=== PATIENT | female | born 1965 | race Two or more races ===

== ENCOUNTER 2025-02-11 16:52 | Inpatient (IN) | payer MEDICARE, MEDICAID, SELFPAY ==
--- OUTSIDE RECORDS SUMMARY | 2025-02-08 01:33 | XMS_ITS | Encounter Summary ---
Author Organization [facility] Address [address] [place] [address] Care Team Providers Care Caregivers Non Medical Name Role Phone Bill Syed MD Primary Care Provider [phone] Reason for Visit * Reason Comments Suicidal Encounter Details Date Type Department Care Team (Late st Contact Info) Description 02/08/2025 1:33 AM EDT - 02/11/2025 4:30 PM EDT Emergency [facility] Emergency [address] [place] [id number] Lynne Smith MD [address] [place] [address] Genoveva Winston MD [address] [place] [address] Jim Shah MD [address] [place], [place] [id number] Александр Arias MD [address] [place] [address] Kodak Altman MD [address] [place] [address] Saad Anderson MD [address] [address] Depression, unspecified depression type (Primary Dx); Housing insecurity; Auditory hallucinations Discharge Disposition: Psychiatric Hospital Social History Tobacco Use Types Packs/Day Years Used Date Smoking Tobacco: Never Smokeless Tobacco: Never Alcohol Use Standard Drinks/Week Comments Yes 0 (1 standard drink = 0.6 oz pur e alcohol) Housing Instability Answer Date Recorde d Are you worried that in the next 2 months you may not have stable housing? Yes 07/30/2024 Food Access & Nutrition Answer Date Rec orded Do you have access to a vari ety of food including fruits and vegetables? Yes 07/30/2024 Access to Healthcare Answer Date Record ed Within the last 3 months, ho w many times did you visit the emergency department for your medical care? 2 07/30/2024 Health Literacy Answer Date Recorded How often do you need to hav e someone help you when you read instructions, pamphlets, or other written material from your doctor or pharmacy? Never 07/30/2024 Caregiver: How often do you need to have someone help you when you read instructions, pamphlets, or other written material from your doctor or pharmacy? Not on file 07/30/2024 Financial Risk Answer Date Recorded How hard is it for you to pa y for the very basics like food, housing, medical care, and air conditioning / heating? Not very hard 07/30/2024 Transportation Answer Date Recorded Has the lack of transportati on kept you from meetings, work, or from getting things needed for daily living? No Has the lack of transportati on kept you from medical appointments or from getting medications? No 07/30/2024 Social Isolation Answer Date Recorded How often do you feel lonely or isolated from those around you? Sometimes 07/30/2024 Food Risk Answer Date Recorded Within the past 12 months we worried whether our food would run out before we got money to buy more. Never true 07/30/2024 Within the past 12 months th e food we bought just didn't last and we didn't have money to get more. Never true 07/30/2024 Dependent Care Answer Date Recorded Do you need help finding or paying for care for your loved ones. For example, child guidance counselor or elderly care for an older adult? No 07/30/2024 Education Answer Date Recorded Do you think completing more education or training, like finishing a GED, going to college, or learning a trade, would be helpful for you? No 07/30/2024 Employment and Income Answer Date Recor ded During the last four weeks, have you been actively looking for work? No 07/30/2024 Living Situation Answer Date Recorded What is your living situation? 0 07/30/2024 Comments No Sex and Gender Information Value Date Recorded Sex Assigned at Not on file Legal Sex Female 4:52 AM EST Gender Identity Not on file Sexual Orientation Not on file documented as of this encounter Last Filed Vital Signs Vital Sign Reading Time Taken Comments Blood Pressure 125/74 02/11/2025 12:41 PM EDT Pulse 68 02/11/2025 12:41 PM EDT Temperature 36.9 C (98.4 F) 02/11/2025 12:41 PM EDT Respiratory Rate 17 02/11/2025 5:39 AM EDT Oxygen Saturation 99% 02/11/2025 12:41 PM EDT Inhaled Oxygen Concentration - - Weight 59 kg (130 lb) 02/08/2025 1:51 AM EDT Height 157.5 cm (5' 2 ) 02/08/2025 1:51 AM EDT Body Mass Index 23.78 02/08/2025 1:51 AM EDT documented in this encounter Medications at Time of Discharge gabapentin (NEURONTIN) 800 mg tabletIndications: Familial hyperlipidemia,Krystal noemy hypertension Take 1 tablet (800 mg total) by mouth 1 (one) time each day. 90 tablet 1 08/23/2024 levothyroxine (SYNTHROID, LEVOTHROID) 75 mcg tabletIndications: Hypothyroidism, unspecified type Takes 75 mcg Mondays to Saturdays. Takes 2 tabs on Sundays 34 each 1 10/16/2024 melatonin 3 mg tablet Take 1 tablet (3 mg total) by mouth at bedtime as needed. 06/17/2024 traZODone (DESYREL) 50 mg tablet Take 1 tablet (50 mg total) by mouth. 08/23/2022 documented as of this encounter Discharge Disposition Disposition Code Departure Means Destination Comment [facility] (Acute Care Facility) documented in this encounter Progress Notes * Sara Flores LCSW - 02/11/2025 12:56 PM EDT BED FOUND- Patient accepted to [facility], by Dr. Thomas Tate. They requested andETA for 3:30pm. * Lynne Smith MD - 02/11/2025 6:23 AM EDT Gifty Perez This patient's care was signed out to me by the offgoing provider. Please see her/his note for further details regarding initial presentation, history of present illness, physical exam, and medical decision making. At time of signout, the following was pending: ED Course as of 02/11/25 0623 Sat Feb 08, 2025 0350 CBC and differential(!) No clinically significant abnormalities. No significant leukocytosis, anemia, thrombocytopenia. [EK] 0422 Ethanol Level(!): 282 [EK] 0439 Alkaline Phosphatase(!): 129 Otherwise unremarkable CMP [EK] 0518 Urine drug screen negative. Patient is clinically sober at this time, speaks with clear and fluent speech, ambulates without assistance. Given EtOH level at 282 at 0200, I will reevaluate her closer to shift change and ensure she is clear for crisis evaluation. [EK] 0808 Patient clinically sober and medically clear for crisis evaluation [EK] [address] Smith: housing insecurity x 2 yrs, feeling hopeless, passive SI, does not want [place], wants respite, unclear what this is but pt states [facility] has helped before, EtOH 282 but clinically sober, pending crisis evaluation, no medical concerns, has distal radius fx s/p ORIF has splint, could leave [RG] 1030 Spoke with Casey from crisis, they will admit for worsening depression and anxiety, also havingAH, she is bed search status, no psych meds [RG] 1242 Ordered home melatonin [RG] 1742 Patient signed out to Dr. Jones pending placement [RG] 2135 Continues to await psych placement [EK] Sun Feb 09, [address] Smith: bed search, no overnight events [RG] 0821 Per RN crisis requesting psych consult, this was placed, insurance healthcare consultant contacted [RG] 1807 Patient received in signout from Dr. Winston pending bed search. Psychiatry had been consulted by daytime team for medical management of depression. Anticipate signout to nighttime physician colleague. [KD] 1802 Pt signed out to Dr. Arias pending bed search [RG] MonFeb 10, 2025 1017 No acute needs during my shift. Patient's care was handed over to the oncoming provider. [EK] [address] Smith: no overnight events, pending search for SI, has remeron on [RG] 1847 Patient signed out to Dr. Altman pending bed search [RG] MonFeb 11, 2025 0148 Patient signed out to me earlier in the shift pending placement for psychiatric evaluation forsuicidal ideation. No acute events over the period of my shift. Patient signed out to . [CL] 0438 No acute needs during my shift. Patient's care was handed over to the oncoming provider. [EK] ED Course User Index [CL] Kodak Altman MD [EK] Lynne Smith MD [KD] Александр Arias MD [RG] Genoveva Winston MD Clinical Impressions as of 02/11/25 0623 Housing insecurity Auditory hallucinations Depression, unspecified depression type No orders to display Labs Reviewed COMPREHENSIVE METABOLIC PANEL - Abnormal Result Value Sodium 142 Potassium 3.9 Chloride 104 CO2 32 Anion Gap 6 Glucose 106 (*) BUN 10 Creatinine 0.76 eGFR 91 BUN/Creatinine Ratio 13.2 Calcium 8.9 AST (SGOT) 16 ALT (SGPT) 15 Alkaline Phosphatase 129 (*) Total Protein 7.3 Albumin 3.6 Total Bilirubin 0.2 ETHANOL - Abnormal Ethanol Level 282 (*) ACETAMINOPHEN LEVEL - Abnormal Acetaminophen Level <2.0 (*) SALICYLATE LEVEL - Abnormal Salicylate Level <1.7 (*) CBC WITH AUTO DIFFERENTIAL - Abnormal WBC 6.0 RBC 4.20 Hemoglobin 14.2 Hematocrit 44.2 MCV 106.5 (*) MCH 34.2 (*) MCHC 32.1 RDW 20.0 (*) Platelets 240 MPV 9.5 NRBC 0.0 NRBC Absolute 0.00 Neutrophils Relative 27.1 Lymphocytes Relative 67.4 Monocytes Relative 3.5 Eosinophils Relative 1.0 Basophils Relative 0.7 Immature Granulocytes Relative 0.3 Neutrophils Absolute 1.63 Lymphocytes Absolute 4.06 Monocytes Absolute 0.21 Eosinophils Absolute 0.06 Basophils Absolute 0.04 Immature Granulocytes Absolute 0.02 DRUG ABUSE SCREEN 8A PANEL, URINE - Normal Amphetamine Screen, Ur Negative Barbiturate Screen, Ur Negative Benzodiazepine Screen, Ur Negative Cocaine Screen, Ur Negative Opiate Screen, Ur Negative Cannabinoid (THC) Screen, Ur Negative Oxycodone Screen, Ur Negative Fentanyl, Ur Negative Narrative: Assay cutoffs: Amphetamines 1000 ng/mL Barbiturates 200 ng/mL Benzodiazepines 200 ng/mL Cocaine 300 ng/mL Fentanyl 1 ng/mL Opiates 300 ng/mL Oxycodone 100 ng/mL THC 50 ng/mL Semi-quantitative assay for screening purposes only. Unconfirmed screening result should not be used for non-medical purposes. *ALTERNATE METHOD CONFIRMATION DONE UPON REQUEST ONLY* BUPRENORPHINE SCREEN, URINE - Normal Buprenorphine Screen Urine Negative Narrative: Assay cutoff 5 ng/mL Semi-quantitative assay for screening purposes only. Unconfirmed screening result should not be used for non-medical purposes. *ALTERNATE METHOD CONFIRMATION DONE UPON REQUEST ONLY* PHENCYCLIDINE, URINE - Normal PCP Scrn, Ur Negative METHADONE SCREEN, URINE - Normal Methadone Screen, Urine Negative CBC AND DIFFERENTIAL Narrative: The following orders were created for panel order CBC and differential. Procedure Abnormality Status --------- ------ CBC auto differential[[id number]] Abnormal Final result Please view results for these tests on the individual orders. Clinical Impression(s): Final diagnoses: [Z59.819] Housing insecurity [R44.0] Auditory hallucinations [F32.A] Depression, unspecified depression type Send to Specialty Department Previous Medications GABAPENTIN (NEURONTIN) 800 MG TABLET Take 1 tablet (800 mg total) by mouth 1 (one) time each day. LEVOTHYROXINE (SYNTHROID, LEVOTHROID) 75 MCG TABLET Takes 75 mcg Mondays to Saturdays. Takes 2 tabson Sundays MELATONIN 3 MG TABLET Take 1 tablet (3 mg total) by mouth at bedtime as needed. TRAZODONE (DESYREL) 50 MG TABLET Take 1 tablet (50 mg total) by mouth. ED Medication Administration from 02/08/2025 0128 to 02/11/2025 0623 Date/Time Order Dose Route Action Action by 02/08/2025 0530 EDT gabapentin (NEURONTIN) capsule 800 mg 800 mg oral Not Given Tonya Peres 02/08/2025 0408 EDT acetaminophen (TYLENOL) tablet 1,000 mg 1,000 mg oral Given Wall, K 02/08/2025 0408 EDT ketorolac (TORADOL) injection 15 mg 15 mg intramuscular Given Wall, K 02/08/2025 0620 EDT levothyroxine (SYNTHROID, LEVOTHROID) tablet 75 mcg 75 mcg oral Given Wall, K 02/09/2025 0749 EDT levothyroxine (SYNTHROID, LEVOTHROID) tablet 75 mcg 75 mcg oral Given Clarissa, Myra 02/10/2025 0637 EDT levothyroxine (SYNTHROID, LEVOTHROID) tablet 75 mcg 75 mcg oral Given Chace Latham 02/08/2025 205 EDT gabapentin (NEURONTIN) capsule 800 mg 800 mg oral Given Maria D Kathleen 02/09/2025 2154 EDT gabapentin (NEURONTIN) capsule 800 mg 800 mg oral Given Adi, Nadine 02/10/2025 2255 EDT gabapentin (NEURONTIN) capsule 800 mg 800 mg oral Given Jalen Rocha 02/08/2025 2253 EDT melatonin tablet 3 mg 3 mg oral Given Maria D Kathleen 02/10/2025 0015 EDT melatonin tablet 3 mg 3 mg oral Given Adi, D 02/10/2025 2256 EDT melatonin tablet 3 mg 3 mg oral Given Jalen Rocha 02/09/2025 2154 EDT mirtazapine (REMERON) tablet 15 mg 15 mg oral Given Adi, Nadine 02/10/2025 0916 EDT acetaminophen (TYLENOL) tablet 650 mg 650 mg oral Given Dusty Tello 02/10/2025 2256 EDT mirtazapine (REMERON) tablet 7.5 mg 7.5 mg oral Given Jalen Rocha * Kodak Altman MD - 02/11/2025 1:49 AM EDT Gifty Perez ED Course as of 02/11/25 0149 Sat Feb 08, 2025 0350 CBC and differential(!) No clinically significant abnormalities. No significant leukocytosis, anemia, thrombocytopenia. [EK] 0422 Ethanol Level(!): 282 [EK] 0439 Alkaline Phosphatase(!): 129 Otherwise unremarkable CMP [EK] 0518 Urine drug screen negative. Patient is clinically sober at this time, speaks with clear and fluent speech, ambulates without assistance. Given EtOH level at 282 at 0200, I will reevaluate her closer to shift change and ensure she is clear for crisis evaluation. [EK] 0808 Patient clinically sober and medically clear for crisis evaluation [EK] [address] Smith: housing insecurity x 2 yrs, feeling hopeless, passive SI, does not want [place], wants respite, unclear what this is but pt states [facility] has helped before, EtOH 282 but clinically sober, pending crisis evaluation, no medical concerns, has distal radius fx s/p ORIF has splint, could leave [RG] 1030 Spoke with Casey from crisis, they will admit for worsening depression and anxiety, also havingAH, she is bed search status, no psych meds [RG] 1242 Ordered home melatonin [RG] 1742 Patient signed out to Dr. Jones pending placement [RG] 2135 Continues to await psych placement [EK] [place] Feb 09, [address] Smith: bed search, no overnight events [RG] 0821 Per RN crisis requesting psych consult, this was placed, insurance healthcare consultant contacted [RG] 180 Patient received in signout from Dr. Winston pending bed search. Psychiatry had been consulted by daytime team for medical management of depression. Anticipate signout to nighttime physician colleague. [KD] 1802 Pt signed out to Dr. Arias pending bed search [RG] MonFeb 10, 2025 1017 No acute needs during my shift. Patient's care was handed over to the oncoming provider. [EK] [address] Smith: no overnight events, pending search for SI, has remeron on [RG] 1847 Patient signed out to Dr. Altman pending bed search [RG] MonFeb 11, 2025 0148 Patient signed out to me earlier in the shift pending placement for psychiatric evaluation forsuicidal ideation. No acute events over the period of my shift. Patient signed out to . [CL] ED Course User Index [CL] Kodak Altman MD [EK] Lynne Smith MD [KD] Александр Arias MD [RG] Genoveva Winston MD Clinical Impressions as of 02/11/25 0149 Housing insecurity Auditory hallucinations Depression, unspecified depression type * Joanna Rocha RN - 02/10/2025 11:27 PM EDT SEARCH- 1:1 watch due to arianne wrap Joanna Rocha RN 02/10/25 2327 * Genoveva Winston MD - 02/10/2025 6:56 PM EDT Gifty Chris ED Course as of 02/10/25 1857 Sat Feb 08, 2025 0350 CBC and differential(!) No clinically significant abnormalities. No significant leukocytosis, anemia, thrombocytopenia. [EK] 0422 Ethanol Level(!): 282 [EK] 0439 Alkaline Phosphatase(!): 129 Otherwise unremarkable CMP [EK] 0518 Urine drug screen negative. Patient is clinically sober at this time, speaks with clear and fluent speech, ambulates without assistance. Given EtOH level at 282 at 0200, I will reevaluate her closer to shift change and ensure she is clear for crisis evaluation. [EK] 0808 Patient clinically sober and medically clear for crisis evaluation [EK] [address] Smith: housing insecurity x 2 yrs, feeling hopeless, passive SI, does not want [place], wants respite, unclear what this is but pt states [facility] has helped before, EtOH 282 but clinically sober, pending crisis evaluation, no medical concerns, has distal radius fx s/p ORIF has splint, could leave [RG] 1030 Spoke with Casey from crisis, they will admit for worsening depression and anxiety, also havingAH, she is bed search status, no psych meds [RG] 1242 Ordered home melatonin [RG] 1742 Patient signed out to Dr. Jones pending placement [RG] 2135 Continues to await psych placement [EK] Sun Feb 09, [address] Smith: bed search, no overnight events [RG] 0821 Per RN crisis requesting psych consult, this was placed, insurance healthcare consultant contacted [RG] 1801 Patient received in signout from Dr. Winston pending bed search. Psychiatry had been consulted by daytime team for medical management of depression. Anticipate signout to nighttime physician colleague. [KD] 180 Pt signed out to Dr. Arias pending bed search [RG] MonFeb 10, 2025 1017 No acute needs during my shift. Patient's care was handed over to the oncoming provider. [EK] [address] Smith: no overnight events, pending search for SI, has remeron on [RG] 184 Patient signed out to Dr. Altman pending bed search [RG] ED Course User Index [EK] Lynne Smith MD [KD] Александр Arias MD [RG] Genoveva Winston MD Clinical Impressions as of 02/10/251856 Housing insecurity Auditory hallucinations Depression, unspecified depression type * SHANNAN Groves - 02/10/2025 5:32 PM EDT Social work aware patient assessed by [facility]/02-10-25 and remains a voluntary in patient psychiatric bed search. * Jessa Seay NP - 02/10/2025 11:48 AM EDT Psychiatry Progress note Patient seen by me, nursing report reviewed with the interdisciplinary team, medications and chart history reviewed. Subjective: (reported issues and events over the last 24 hours) The medicine did make me sleepy but it made my body jumpy Active Problems: No Active Problems: There are no active problems currently on the Problem List. Please update the Problem List and refresh. Objective: Seclusion/Restraint in last 24 hours: No Blood pressure (!) 130/92, pulse 62, temperature 37.1 ??C (98.7 ??F), temperature source Oral, resp. rate 18, height 1.575 m (62 ), weight 59 kg (130 lb), SpO2 98%. Appearance/Grooming: grooming moderately kept and well developed, well nourished Musculoskeletal: reports lower extremity numbness. Tingling Orientation: Appropriate to age, Person, Place, and Time Mood: depressed and sad Affect: flat Memory: Recent: good Remote: good Attention Span: fair Concentration: fair Language Usage: Appropriate to age Speech: Coherent, Regular rate, rhythm, volume and articulation, and Soft Fund. Of Knowledge: Fair Thought Processes: Abstract reasoning appropriate to age and Coherent Thought Associations: Logical Thought Abnormalities or Psychosis: Not present Judgement: Good Insight: fair Sleep: normal Appetite: better Energy: no change Lab Results: Results for orders placed or performed during the hospital encounter of 02/08/25 Comprehensive metabolic panel Collection Time: 02/08/25 2:07 AM Result Value Ref Range Sodium 142 133 - 145 mmol/L Potassium 3.9 3.5 - 5.5 mmol/L Chloride 104 96 - 110 mmol/L CO2 32 21 - 32 mmol/L Anion Gap 6 3 - 11 Glucose 106 (H) 70 - 100 mg/dL BUN 10 5 - 25 mg/dL Creatinine 0.76 0.50 - 1.10 mg/dL eGFR 91 >=60 mL/min/1.73m2 BUN/Creatinine Ratio 13.2 Calcium 8.9 8.5 - 10.5 mg/dL AST (SGOT) 16 10 - 42 unit/L ALT (SGPT) 15 10 - 60 unit/L Alkaline Phosphatase 129 (H) 42 - 121 unit/L Total Protein 7.3 6.0 - 8.0 g/dL Albumin 3.6 3.2 - 5.0 g/dL Total Bilirubin 0.2 0.0 - 1.4 mg/dL Ethanol Collection Time: 02/08/25 2:07 AM Result Value Ref Range Ethanol Level 282 (H) 0 - 10 mg/dL Acetaminophen level Collection Time: 02/08/25 2:07 AM Result Value Ref Range Acetaminophen Level <2.0 (L) 10.0 - 30.0 mcg/mL Salicylate level Collection Time: 02/08/25 2:07 AM Result Value Ref Range Salicylate Level <1.7 (L) 2.0 - 29.0 mg/dL CBC auto differential Collection Time: 02/08/25 2:07 AM Result Value Ref Range WBC 6.0 4.8 - 10.8 K/mcL RBC 4.20 3.80 - 4.80 M/mcL Hemoglobin 14.2 11.5 - 16.0 g/dL Hematocrit 44.2 35.0 - 47.0 % MCV 106.5 (H) 79.0 - 98.0 FL MCH 34.2 (H) 27.0 - 32.0 pcg MCHC 32.1 32.0 - 37.0 g/dL RDW 20.0 (H) 11.0 - 15.0 % Platelets 240 130 - 400 K/mcL MPV 9.5 7.0 - 11.0 FL NRBC 0.0 <1.0 % NRBC Absolute 0.00 <0.10 K/mcL Neutrophils Relative 27.1 % Lymphocytes Relative 67.4 % Monocytes Relative 3.5 % Eosinophils Relative 1.0 % Basophils Relative 0.7 % Immature Granulocytes Relative 0.3 % Neutrophils Absolute 1.63 1.50 - 7.00 K/mcL Lymphocytes Absolute 4.06 1.00 - 5.00 K/mcL Monocytes Absolute 0.21 0.20 - 1.00 K/mcL Eosinophils Absolute 0.06 0.00 - 0.50 K/mcL Basophils Absolute 0.04 0.00 - 0.20 K/mcL Immature Granulocytes Absolute 0.02 0.00 - 0.03 K/mcL Drug abuse screen 8a panel, urine Collection Time: 02/08/25 2:20 AM Result Value Ref Range Amphetamine Screen, Ur Negative Negative Barbiturate Screen, Ur Negative Negative Benzodiazepine Screen, Ur Negative Negative Cocaine Screen, Ur Negative Negative Opiate Screen, Ur Negative Negative Cannabinoid (THC) Screen, Ur Negative Negative Oxycodone Screen, Ur Negative Negative Fentanyl, Ur Negative Negative Buprenorphine screen, urine Collection Time: 02/08/25 2:20 AM Result Value Ref Range Buprenorphine Screen Urine Negative Negative Phencyclidine, urine Collection Time: 02/08/25 2:20 AM Result Value Ref Range PCP Scrn, Ur Negative Negative Methadone, urine Collection Time: 02/08/25 2:20 AM Result Value Ref Range Methadone Screen, Urine Negative Negative Medications: Current Facility-Administered Medications Medication Dose Route Frequency Provider Last Rate Last Admin gabapentin (NEURONTIN) capsule 800 mg 800 mg oral Nightly Lynne Smith MD 800 mg at 02/09/25 5914 levothyroxine (SYNTHROID, LEVOTHROID) tablet 75 mcg 75 mcg oral q AM AC Lynne Smith MD 75 mcg at 02/10/25 0637 melatonin tablet 3 mg 3 mg oral Nightly PRN Genoveva Winston MD 3 mg at 02/10/25 0015 mirtazapine (REMERON) tablet 15 mg 15 mg oral Nightly Jessa Seay NP 15 mg at 02/09/25 3837 Current Outpatient Medications Medication Sig Dispense Refill gabapentin (NEURONTIN) 800 mg tablet Take 1 tablet (800 mg total) by mouth 1 (one) time each day. 90 tablet 1 levothyroxine (SYNTHROID, LEVOTHROID) 75 mcg tablet Takes 75 mcg Mondays to Saturdays. Takes 2 tabson Sundays 34 each 1 melatonin 3 mg tablet Take 1 tablet (3 mg total) by mouth at bedtime as needed. (Patient not taking: Reported on 02/08/2025) traZODone (DESYREL) 50 mg tablet Take 1 tablet (50 mg total) by mouth. (Patient not taking: Reported on 02/08/2025) Diagnosis/Assessment/Plan: Depression, recurrent Anxiety Housing insecurity Alcohol use Ms Perez continues to deny suicidal ideation, reports continuing depression, hopeless feeling. States mirtazapine Made me sleepy but my body was jumpy inside 1) Will decrease mirtazapine 7.5 mg at bedtime for mood, anxiety as it may promote sleep and appetite. Discusses some of the possible risks and benefits, Ms Perze is in agreement with plan for medication at this time. 2) Collaborate with team for inpatient psychiatric hospitalization for patient safety, mood stabilization and medication management Jessa Seay NP * Genoveva Winston MD - 02/09/2025 6:03 PM EDT Gifty Perez ED Course as of 02/10/25 1848 Sat Feb 08, 2025 0350 CBC and differential(!) No clinically significant abnormalities. No significant leukocytosis, anemia, thrombocytopenia. [EK] 0422 Ethanol Level(!): 282 [EK] 0439 Alkaline Phosphatase(!): 129 Otherwise unremarkable CMP [EK] 0518 Urine drug screen negative. Patient is clinically sober at this time, speaks with clear and fluent speech, ambulates without assistance. Given EtOH level at 282 at 0200, I will reevaluate her closer to shift change and ensure she is clear for crisis evaluation. [EK] 0808 Patient clinically sober and medically clear for crisis evaluation [EK] [address] Smith: housing insecurity x 2 yrs, feeling hopeless, passive SI, does not want [place], wants respite, unclear what this is but pt states [facility] has helped before, EtOH 282 but clinically sober, pending crisis evaluation, no medical concerns, has distal radius fx s/p ORIF has splint, could leave [RG] 1030 Spoke with Casey from crisis, they will admit for worsening depression and anxiety, also havingAH, she is bed search status, no psych meds [RG] 1242 Ordered home melatonin [RG] 1742 Patient signed out to Dr. Jones pending placement [RG] 213 Continues to await psych placement [EK] Sun Feb 09, [address] Smith: bed search, no overnight events [RG] 0821 Per RN crisis requesting psych consult, this was placed, insurance healthcare consultant contacted [RG] 180 Patient received in signout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 LAB HEMETOLOGY METHOD 02/08/2025 3:49 AM [facility] Eosinophils Absolute 0.06 0.00 - 0.50 K/mcL LAB HEMETOLOGY METHOD 02/08/2025 3:49 AM EDT [facility] Basophils Absolute 0.04 0.00 - 0.20 K/[facility] LAB HEMETOLOGY METHOD 02/08/2025 3:49 AM EDT [facility] Immature Granulocytes Absolute 0.02 0.00 - 0.03 K/[facility] LAB HEMETOLOGY METHOD 02/08/2025 3:49 AM EDT [facility] Blood Venous blood specimen / Unknown Venipuncture / Unknown 02/08/2025 2:07 AM EDT 02/08/2025 3:41 AM EDT us Lynne Smith MD LAB BLOOD ORDERABLES Final Res ult Performing Organization Address [facility]/ZIP Co de Phone Number [facility] [address] [place] [address], * (ABNORMAL) Salicylate level (02/08/2025 2:07 AM EDT) Salicylate Level <1.7(L) 2.0 - 29.0 mg/dL LAB CHEMISTRY METHOD 02/08/2025 4:15 AM EDT [facility] Blood Venous blood specimen / Unknown Venipuncture / Unknown 02/08/2025 2:07 AM EDT 02/08/2025 3:41 AM EDT Lynne Smith MD LAB BLOOD ORDERABLES Final Res ult Performing Organization Address [facility]/ZIP Co de Phone Number [facility] [address] [place] [address], [place] [phone] * (ABNORMAL) Acetaminophen level (02/08/2025 2:07 AM EDT) Acetaminophen Level <2.0(L) 10.0 - 30.0 mcg/mL LAB CHEMISTRY METHOD 02/08/2025 4:16 AM EDT [facility] Blood Venous blood specimen / Unknown Venipuncture / Unknown 02/08/2025 2:07 AM EDT 02/08/2025 3:41 AM EDT Lynne Smith MD LAB BLOOD ORDERABLES Final Res ult Performing Organization Address [facility]/ZIP Co de Phone Number [facility] [address] [place] [address], [place] [phone] * (ABNORMAL) Ethanol (02/08/2025 2:07 AM EDT) Ethanol Level 282(H) 0 - 10 mg/dL LAB CHEMISTRY METHOD 02/08/2025 4:15 AM EDT [facility] Blood Venous blood specimen / Unknown Venipuncture / Unknown 02/08/2025 2:07 AM EDT 02/08/2025 3:41 AM EDT Lynne Smith MD LAB BLOOD ORDERABLES Final Res ult Performing Organization Address [facility]/ZIP Co de Phone Number [facility] [address] [place] [address], [place] [phone] * (ABNORMAL) Comprehensive metabolic panel (02/08/2025 2:07 AM EDT) Sodium 142 133 - 145 mmol/L LAB CHEMISTRY METHOD 02/08/2025 4:16 AM EDT [facility] Potassium 3.9 3.5 - 5.5 mmol/L LAB CHEMISTRY METHOD 02/08/2025 4:16 AM EDT [facility] Chloride 104 96 - 110 mmol/L LAB CHEMISTRY METHOD 02/08/2025 4:16 AM EDT [facility] CO2 32 21 - 32 mmol/L LAB CHEMISTRY METHOD 02/08/2025 4:16 AM EDT [facility] Anion Gap 6 3 - 11 LAB CHEMISTRY METHOD 02/08/2025 4:16 AM [facility] Glucose 106(H) 70 - 100 mg/dL LAB CHEMISTRY METHOD 02/08/2025 4:16 AM [facility] BUN 10 5 - 25 mg/dL LAB CHEMISTRY METHOD 02/08/2025 4:16 AM [facility] Creatinine 0.76 0.50 - 1.10 mg/dL LAB CHEMISTRY METHOD 02/08/2025 4:16 AM [facility] eGFR 91 >=60 mL/min/1. 73m2 LAB CHEMISTRY METHOD 02/08/2025 4:16 AM [facility] Comment:Calculation based on the Chronic Kidney Disease Epidemiology Collaboration (CKD-EPI) equation refit without adjustment for race. BUN/Creatinine Ratio 13.2 LAB CHEMISTRY METHOD 02/08/2025 4:16 AM [facility] Calcium 8.9 8.5 - 10.5 mg/dL LAB CHEMISTRY METHOD 02/08/2025 4:16 AM [facility] AST (SGOT) 16 10 - 42 unit/L LAB CHEMISTRY METHOD 02/08/2025 4:16 AM [facility] ALT (SGPT) 15 10 - 60 unit/L LAB CHEMISTRY METHOD 02/08/2025 4:16 AM [facility] Alkaline Phosphatase 129(H) 42 - 121 unit/L LAB CHEMISTRY METHOD 02/08/2025 4:16 AM [facility] Total Protein 7.3 6.0 - 8.0 g/dL LAB CHEMISTRY METHOD 02/08/2025 4:16 AM [facility] Albumin 3.6 3.2 - 5.0 g/dL LAB CHEMISTRY METHOD 02/08/2025 4:16 AM [facility] Total Bilirubin 0.2 0.0 - 1.4 mg/dL LAB CHEMISTRY METHOD 02/08/2025 4:16 AM [facility] Blood Venous blood specimen / Unknown Venipuncture / Unknown 02/08/2025 2:07 AM EDT 02/08/2025 3:41 AM EDT us Lynne Smith MD LAB BLOOD ORDERABLES Final Res ult [facility] [address] [place] [address], documented in this encounter Visit Diagnoses Diagnosis Depression, unspecified depression type- Primary Housing insecurity Auditory hallucinations Hallucinations documented in this encounter Administered Medications Inactive Administered Medications - up to 3 most recent administrations Medication Order MAR Action Action Date Dose Rate Site acetaminophen (TYLENOL) tablet 1,000 mg 1,000 mg, oral, Once, On 02/08/25 at 0220, For 1 dose Given 02/08/2025 4:08 AM EDT 1,000 mg acetaminophen (TYLENOL) tablet 650 mg 650 mg, oral, Once, On 02/10/25 at 0905, For 1 dose Given 02/10/2025 9:16 AM EDT 650 mg gabapentin (NEURONTIN) capsule 800 mg 800 mg, oral, Nightly, First dose (after last modification) on 02/08/25 at 2100, For 5 days Given 02/10/2025 10:55 PM EDT 800 mg Given 02/09/2025 9:54 PM EDT 800 mg Given 02/08/2025 8:55 PM EDT 800 mg ketorolac (TORADOL) injection 15 mg 15 mg, intramuscular, Once, On 02/08/25 at 0220, For 1 dose Given 02/08/2025 4:08 AM EDT 15 mg Left Deltoid levothyroxine (SYNTHROID, LEVOTHROID) tablet 75 mcg 75 mcg, oral, Every morning before breakfast, First dose on 02/08/25 at 0700, For 5 days, ORAL ROUTE: take on an empty stomach and separate from other medications. ENTERAL TUBE ROUTE: If newly initiated enteral nutrition duration is over 5 days, hold enteral nutrition 1 hour before and after drug administration, per ASPEN guidelines. Given 02/11/2025 6:27 AM EDT 75 mcg Given 02/10/2025 6:37 AM EDT 75 mcg Given 02/09/2025 7:49 AM EDT 75 mcg melatonin tablet 3 mg 3 mg, oral, Nightly PRN, sleep, Starting on 02/08/25 at 1241 Given 02/10/2025 10:56 PM EDT 3 mg Given 02/10/2025 12:15 AM EDT 3 mg Given 02/08/2025 10:53 PM EDT 3 mg mirtazapine (REMERON) tablet 15 mg 15 mg, oral, Nightly, First dose on 02/09/25 at 2100 Given 02/09/2025 9:54 PM EDT 15 mg mirtazapine (REMERON) tablet 7.5 mg 7.5 mg, oral, Nightly, First dose (after last modification) on 02/10/25 at 2100 Given 02/10/2025 10:56 PM EDT 7 .5 mg documented in this encounter Active and Recently Administered Medications Times are shown in EDT. Scheduled Medication Order 02/09/2025 02/10/2025 02/11/2025 acetaminophen (TYLENOL) tablet 650 mg (COMPLETED) 650 mg, oral, Once, On 02/10/25 at 0905, For 1 dose 0916 (Given - Provider: Emily Tello, VALDEZ) gabapentin (NEURONTIN) capsule 800 mg 800 mg, oral, Nightly, First dose (after last modification) on 02/08/25 at 2100, For 5 days 2154 (Given - Provider: Cynthia Joshi RN) 2255 (Given - Provider: Joanna Rocha, VALDEZ - Comment: pt requested nighttime meds be delayed as documented) levothyroxine (SYNTHROID, LEVOTHROID) tablet 75 mcg 75 mcg, oral, Every morning before breakfast, First dose on 02/08/25 at 0700, For 5 days, ORAL ROUTE: take on an empty stomach and separate from other medications. ENTERAL TUBE ROUTE: If newly initiated enteral nutrition duration is over 5 days, hold enteral nutrition 1 hour before and after drug administration, per ASPEN guidelines. 0749 (Given - Provider: Becka Romo, VALDEZ) 0637 (Given - Provider: Becky Latham RN) 0627 (Given - Provider: Joanna Rocha, VALDEZ) mirtazapine (REMERON) tablet 15 mg (CANCELED) 15 mg, oral, Nightly, First dose on 02/09/25 at 2100 2154 (Given - Provider: Cynthia Joshi RN) mirtazapine (REMERON) tablet 7.5 mg 7.5 mg, oral, Nightly, First dose (after last modification) on 02/10/25 at 2100 2256 (Given - Provider: Joanna Rocha RN - Comment: pt requested nighttime meds be delayed as documented) PRN Medication Order 02/09/2025 02/10/2025 02/11/2025 melatonin tablet 3 mg 3 mg, oral, Nightly PRN, sleep, Starting on 02/08/25 at 1241 0015 (Given - Provider: John Joshi RN)2256 (Given - Provider: Joanna Rocha RN) documented in this encounter Orders Medications Ordered That Bayron ht Not Have Been Administered Count Last Ordered Date First Ordered Date gabapentin (NEURONTIN) capsule 800 mg 1 Consult Count Last Ordered Date First Orde red Date IP CONSULT TO PSYCHIATRY 1 02/09/2025 IP CONSULT TO TRAVEL MONEY ADVISOR 1 02/08/2025 IP CONSULT TO SOCIAL WORK 1 02/08/2025 documented in this encounter Additional Health Concerns Assessment Noted Time PHQ-9 Depression Total Score: 0 08/24/19 10:54 AM EDT documented as of this encounter Care Teams Caregivers Non Medical Relationship Specialty Start Date End Date Bill Syed MD [address] [place] [id number] PCP - General Internal Medicine 07/10/24 documented as of this encounter
[2025-02-11 17:57] VITALS: BP 140/90; PULSE 75; RESP 18; TEMP 36.4; O2SAT 97
[2025-02-11 17:58] VITALS: BMI 24.5
--- OUTSIDE RECORDS SUMMARY | 2025-02-11 18:45 | XMS_ITS | Clinical Summary ---
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 0 05/26/2020 Active gabapentin (NEURONTIN) 800 MG tablet Take 800 mg by mouth. 0 07/01/2020 Active hydrOXYzine (ATARAX) 25 MG tablet Take 25-50 mg by mouth. 0 04/09/2020 Active levothyroxine (SYNTHROID) tablet 88 mcg Take 1 tablet by mouth daily. 0 05/25/2020 Active ibuprofen 600 MG tablet Take 1 tablet (600 mg total) by mouth every 8 (eight) hours as needed for pain. One tid prn pain 20 tablet 0 11/24/2020 Active Active Problems Problem Noted Date Diagnosed Date Acute pain due to trauma 12/15/2020 Eyebrow laceration, right, initial encounter Acute alcoholic intoxication without complicatio n 12/15/2020 Closed fracture of neck of right humerus 021 Social History Tobacco Use Types Packs/Day Years Used Date Smoking Tobacco: Never Smokeless Tobacco: Never Alcohol Use Standard Drinks/Week Comments Yes 0 (1 standard drink = 0.6 oz pur e alcohol) Occasional Sex and Gender Information Value Date Recorded Sex Assigned at Female 11/23/2020 6:10 PM EDT Gender Identity Not on file Sexual Orientation Not on file Job Start Date Occupation Industry Not on file Not on file Not on file Last Filed Vital Signs Vital Sign Reading Time Taken Comments Blood Pressure 109/76 11/24/2020 4:27 AM EDT Pulse 78 11/24/2020 4:27 AM EDT Temperature 36.7 C (98 F) 11/24/2020 4:27 AM EDT Respiratory Rate 16 11/24/2020 4:27 AM EDT Oxygen Saturation 96% 11/24/2020 4:27 AM EDT Inhaled Oxygen Concentration - - Weight 65 kg (143 lb 4.8 oz) 11/23/2020 10:48 PM EDT Height 152.4 cm (5') 11/23/2020 10:48 PM EDT Body Mass Index 27.99 11/23/2020 10:48 PM EDT Plan of Treatment Health Maintenance Due Date Last Done Comments Hepatitis B Vaccines (1 of 3 - 3-dose series) 1966 Hepatitis C Screening 1966 COVID-19 Vaccine (#1) 1966 Depression Screening 1978 Preventative Health Evaluation 1984 Cervical Cancer Screening (Pap Smear) 1987 Colon Cancer Screening (Colonoscopy) 2011 Breast Cancer Screening (Mammogram) 2016 Shingrix-Zoster Vaccine (1 o f 2) 2016 DTap / Tdap / Td (2 - Td or Tdap) 11/03/2020 11/03/2010 Influenza Vaccine (#1) 2025 0, 03/08/2019 Pneumococcal Vaccine Aged Out No long er eligible based on patient's age to complete this topic RSV Ped < 20 months Aged Out No longe r eligible based on patient's age to complete this topic Gifty Perez Personal/Famil y Self 1965 [address] [place] [address]
--- OUTSIDE RECORDS SUMMARY | 2025-02-11 18:45 | XMS_ITS | Clinical Summary ---
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 3 Active gabapentin (NEURONTIN) 800 mg tabletIndications :Familial hyperlipidemia,Pr imary hypertension Take 1 tablet (800 mg total) by mouth 1 (one) time each day. 90 tablet 1 5 Active melatonin 3 mg tablet Take 1 tablet (3 mg total) by mouth at bedtime as needed. 5 Active levothyroxine (SYNTHROID, LEVOTHROID) 75 mcg tabletIndications :Hypothyroidism, unspecified type Takes 75 mcg Mondays to Saturdays. Takes 2 tabs on Sundays 34 each 1 5 Active Active Problems Problem Noted Date Diagnosed Date Alcohol use disorder 07/11/2024 Generalized anxiety disorder 07/11/2024 Elevated alkaline phosphatase level 03/17/2021 Acute alcoholic intoxication without complication (CMS/HCC V24) 12/15/2020 Acute pain due to trauma 12/15/2020 Closed fracture of neck of right humerus 021 Eyebrow laceration, right, initial encounter Idiopathic polyneuropathy 02/13/2020 Prediabetes 04/26/2017 Elevated LFTs 10/13/2016 Familial hyperlipidemia 10/13/2016 Fatty liver 10/13/2016 Panic attacks 10/06/2016 Hypothyroidism 10/10/2008 HTN (hypertension) 10/02/2008 GI (gastrointestinal bleed) 10/10/2007 Overview (07/11/2024): She had a recurrent bleeding 07/2007 multiple study including upper GI and colonoscopy by Dr Charli Morillo. She also had RBC tagged scan which showed active bleeding at the right hepatic flexure of the colon. She then had angiogram and was unable to identify the source of bleeding. She had received total of 6 units of blood Diverticulosis of colon 08/17/2007 Encounters Date Type Department Care Team Description 02/08/2025 1:33 AM EDT - 02/11/2025 4:30 PM EDT Emergency [facility] Emergency [address] [place] [phone] Lynne Smith MD Gordon, Ruth, MD Corrado, Adam D, MD Damri, MD Anupama Calderón Cedric W, MD Touriel, MD Saad Depression, unspecified depression type (Primary Dx); Housing insecurity; Auditory hallucinations Discharge Disposition: [facility] 01/21/2025 Telephone [facility] [address] [place] [phone] Bill Syed MD 01/10/2025 Telephone [facility] [address] [place] [phone] Bill Syed MD 11/25/2024 7:58 PM EDT - 11/26/2024 12:54 AM EDT Emergency [facility] Emergency [address] [place] [phone] Pain (Primary Dx); Left leg pain Discharge Disposition: Home or Self Care from Last 3 Months Immunizations Name Administration Dates Next Due Influenza trivalent, with preservative (Fluzone; Afluria) 6mo and older 04/04/2023,02/22/2020,03/08/2019,2016 Influenza, Unspecified 03/05/2017 Td, Unspecified 04/04/2023 Tdap Tetanus diptheria acell ular pertussis (Boostrix; Adacel) 7yo and older 11/03/2010 Surgical History Surgery Date Site/Laterality Comments TUBAL LIGATION 2000 PROCEDURE: HISTORICAL TUBAL LIGATION MULTIPLE TOOTH EXTRACTIONS age 30's PROCEDURE: HISTORICAL DENTAL EXTRACTION; COMMENT: no excess bleeding COLONOSCOPY 07/2007 & EGD-gastritis PROCEDURE: HISTORICAL COLONOSCOPY; COMMENT: neg (+RBC hepatic flexure tagged study) Medical History Medical History Date Comments Diverticulosis h/o hosp for rectal bleeding DX:Diverticulosis Unspecified essential hypertension DX:Unspecified essential hypertension Unspecified disorder of thyroid DX:Unspecified disorder of thyroid Familial hyperlipidemia 10/13/2016 DX:Famil ial hyperlipidemia Idiopathic polyneuropathy 02/13/2020 DX:Idi opathic polyneuropathy Family History Medical History Relation Name Comments No Known Problems Aunt No Known Problems Brother No Known Problems Daughter No Known Problems Father Breast cancer Father's side sister No Known Problems Maternal Grandfather No Known Problems Maternal Grandmother Cataracts Mother Glaucoma Mother No Known Problems Other No Known Problems Paternal Grandfather No Known Problems Paternal Grandmother Macular degeneration Sister No Known Problems Son No Known Problems Uncle Blindness Neg Hx Strabismus Neg Hx Relation Name Status Comments Aunt Brother Alive x5, not close t o them except one with stroke age 50 Daughter Alive x2 '94 & ', h ealthy Father [place] at age 60, h is first was at age 47, dm, htn Father's side Maternal Grandfather Maternal Grandmother Mother stroke, HD,HTN Other Paternal Grandfather Paternal Grandmother Sister Son Alive x2 healthy born 2000 Uncle Social History Tobacco Use Types Packs/Day Years Used Date Smoking Tobacco: Never Smokeless Tobacco: Never Tobacco Cessation:Counseling Given: Not Answered Alcohol Use Standard Drinks/Week Comments Yes 0 [...] for your loved ones. For example, child psychiatrist or elderly care for an older adult? [...] on file Sexual Orientation Not on file Obstetrics History Last Filed Vital Signs Vital Sign Reading [...] Mass Index 23.78 02/08/2025 1:51 AM EDT Plan of Treatment Upcoming Encounters Date Type Department Care Team (Late st Contact Info) Description 02/28/2025 3:30 PM EDT Office Visit Internal Medicine - [address] [phone] Bill Syed MD [address] [place] [phone] Health Maintenance Due Date Last Done Comments Hepatitis A Vaccines (1 of 2 - Risk 2-dose series) 1985 Hepatitis B Vaccines (1 of 3 - 19+ 3-dose series) 1985 Pneumococcal Vaccine: 50+ Years (1 of 2 - PCV) 1985 Cervical Cancer Screening: Pap Smear 1987 Zoster Vaccines (1 of 2) 2016 Colorectal Cancer Screening: Colonoscopy 04/24/2022 HIV Screening 04/24/2022 Breast Cancer Screening 10/11/2024 10/11/2022 COVID-19 Vaccine ( season) 2025 01/02/2021, 12/12/2020 Influenza Vaccine (#1) 2025 , 02/22/2020, 03/08/2019, Additional history exists Social Influencers of Health Screening 07/30/2025 07/30/2024 Medicare Annual Wellness Visit 08/23/2025 08/23/2024 Hypertension/CHF/CAD Annual BMP Blood Test 02/08/2026 02/08/2025, 08/23/2024, 05/08/2024, Additional history exists Cholesterol Screening (Lipid Panel) 08/23/2029 08/23/2024, 01/17/2024, 01/17/2024 DTaP,Tdap,and Td Vaccines (3 - Td or Tdap) 04/04/2033 04/04/2023, 11/03/2010 RSV Immunization Adult Patients (1 - 1-dose 75+ series) 2041 Hepatitis C Screening Completed 07/23/2020 Depression Screening Completed 08/23/2024 HIB Vaccines Aged Out No longer eligi ble based on patient's age to complete this topic HPV Vaccines Aged Out No longer eligi ble based on patient's age to complete this topic IPV Vaccines Aged Out No longer eligi ble based on patient's age to complete this topic MMR Vaccines Aged Out No longer eligi ble based on patient's age to complete this topic Meningococcal ACWY Vaccine Aged Out N o longer eligible based on patient's age to complete this topic Meningococcal B Vaccine Aged Out No l onger eligible based on patient's age to complete this topic RSV Immunization Patients Under 20 months Aged Out No longer eligible based on patient's age to complete this topic Varicella Vaccines Aged Out No longer eligible based on patient's age to complete this topic Procedures Procedure Name Priority Date/Time Associated Diagnosis Comments ECG 12-LEAD STAT 02/11/2025 12:27 PM EDT METHADONE SCREEN, URINE STAT 02/08/2025 2:20 AM EDT PHENCYCLIDINE, URINE STAT 02/08/2025 2:20 AM EDT BUPRENORPHINE SCREEN, URINE STAT 02/08/2025 2:20 AM EDT DRUG ABUSE SCREEN 8A PANEL, URINE STAT 02/08/2025 2:20 AM EDT CBC WITH AUTO DIFFERENTIAL STAT 02/08/2025 2:07 AM EDT SALICYLATE LEVEL STAT 02/08/2025 2:07 AM EDT ACETAMINOPHEN LEVEL STAT 02/08/2025 2 :07 AM EDT ETHANOL STAT 02/08/2025 2:07 AM EDT COMPREHENSIVE METABOLIC PANEL STAT 02/08/2025 2:07 AM EDT CBC AND DIFFERENTIAL STAT 02/08/2025 2:07 AM EDT VAS US DUPLEX LOWER EXT VENOUS LEFT STAT 11/25/2024 11:26 PM EDT Pain XR TIBIA FIBULA 2 VIEWS LEFT STAT 11/25/2024 10:03 PM EDT XR FEMUR 2+ VIEWS LEFT STAT 11/25/2024 10:03 PM EDT LIPID PANEL WITH REFLEX TO DIRECT LDL Routine 08/23/2024 11:29 AM EDT Familial hyperlipidemia Primary hypertension SCREENING MAMMOGRAPHY BI 2-VIEW BREAST INC CAD Routine 10/11/2022 3:32 PM EDT Encounter for screening mammogram for malignant neoplasm of breast HEPATITIS C SCREENING Routine 07/23/2020 from Last 3 Months or Most Recently Relevant to Health Maintenance Results * Drug abuse screen 8a panel, urine (02/08/2025 2:20 AM EDT) Amphetamine Screen, Ur Negative Negative LAB CHEMISTRY METHOD 02/08/2025 4:11 AM EDT [facility] Comment:Certain OTC medicati ons containing ephedrine, phenylephrine, pseudoephedrine and phenylpropanolamine can cause false positive results. Barbiturate Screen, Ur Negative Negative LAB CHEMISTRY METHOD 02/08/2025 4:11 AM EDT [facility] Benzodiazepine Screen, Ur Negative Negative LAB CHEMISTRY METHOD 02/08/2025 4:11 AM EDT [facility] Cocaine Screen, Ur Negative Negative LAB CHEMISTRY METHOD 02/08/2025 4:11 AM EDT [facility] Opiate Screen, Ur Negative Negative LAB CHEMISTRY METHOD 02/08/2025 4:11 AM EDT [facility] Cannabinoid (THC) Screen, Ur Negative Negative LAB CHEMISTRY METHOD 02/08/2025 4:11 AM EDT [facility] Comment:Specimens from patie nts taking pantoprazole sodium (Protonix) have been shown to produce false positive results. Oxycodone Screen, Ur Negative Negative LAB CHEMISTRY METHOD 02/08/2025 4:11 AM EDT [facility] Fentanyl, Ur Negative Negative LAB CHEMISTRY METHOD 02/08/2025 4:11 AM EDT [facility] Urine Urine specimen obtained by clean catch procedure / Unknown Non-blood Collection / Unknown 02/08/2025 2:20 AM EDT 02/08/2025 3:40 AM EDT [facility] - 02/08/2025 4:11 AM EDT Assay [...] MD LAB URINE ORDERABLES Final Res ult [facility] [address] [place] [address], * Buprenorphine screen, urine (02/08/2025 2:20 AM EDT) Buprenorphine Screen Urine Negative Negative LAB CHEMISTRY METHOD 02/08/2025 4:11 AM EDT [facility] Urine Urine specimen obtained by clean catch procedure / Unknown Non-blood Collection / Unknown 02/08/2025 2:20 AM EDT 02/08/2025 3:40 AM EDT [facility] - 02/08/2025 4:11 AM EDT Assay cutoff 5 ng/mL Semi-quantitative assay for screening purposes only. Unconfirmed screening result should not be used for non-medical purposes. *ALTERNATE METHOD CONFIRMATION DONE UPON REQUEST ONLY* Lynne Smith MD LAB URINE ORDERABLES Final Res ult Performing Organization Address [facility] Co de Phone Number [facility] [address] [place] [address], [place] [phone] * Methadone, urine (02/08/2025 2:20 AM EDT) Methadone Screen, Urine Negative Negative LAB CHEMISTRY METHOD 02/08/2025 4:11 AM EDT [facility] Comment: Assay cutoff 300 ng/mL Semi-quantitative assay for screening purposes only. Unconfirmed screening result should not be used for non-medical purposes. *ALTERNATE METHOD CONFIRMATION DONE UPON REQUEST ONLY* Urine Urine specimen obtained by clean catch procedure / Unknown Non-blood Collection / Unknown 02/08/2025 2:20 AM EDT 02/08/2025 3:40 AM EDT Lynne Smith MD LAB URINE ORDERABLES Final Res ult Performing Organization Address [facility] de Phone Number [facility] [address] [place] [address], [place] [phone] * Phencyclidine, urine (02/08/2025 2:20 AM EDT) PCP Scrn, Ur Negative Negative LAB CHEMISTRY METHOD 02/08/2025 4:11 AM EDT [facility] Comment: Assay cutoff 25 ng/mL Semi-quantitative assay for screening purposes only. Unconfirmed screening result should not be used for non-medical purposes. *ALTERNATE METHOD CONFIRMATION DONE UPON REQUEST ONLY* Urine Urine specimen obtained by clean catch procedure / Unknown Non-blood Collection / Unknown 02/08/2025 2:20 AM EDT 02/08/2025 3:40 AM EDT Lynne Smith MD LAB URINE ORDERABLES Final Res ult Performing Organization Address City/[facility]/ZIP Co de Phone Number [facility] [address] [place] [address], * (ABNORMAL) CBC auto differential (02/08/2025 2:07 AM EDT) [facility] WBC 6.0 4.8 - 10.8 K/mcL LAB HEMETOLOGY METHOD 02/08/2025 3:49 AM EDT [facility] RBC 4.20 3.80 - 4.80 M/mcL LAB HEMETOLOGY METHOD 02/08/2025 3:49 AM EDT [facility] Hemoglobin 14.2 11.5 - 16.0 g/dL LAB HEMETOLOGY METHOD 02/08/2025 3:49 AM EDT [facility] Hematocrit 44.2 35.0 - 47.0 % LAB HEMETOLOGY METHOD 02/08/2025 3:49 AM EDT [facility] MCV 106.5(H) 79.0 - 98.0 FL LAB HEMETOLOGY METHOD 02/08/2025 3:49 AM EDT [facility] MCH 34.2(H) 27.0 - 32.0 pcg LAB HEMETOLOGY METHOD 02/08/2025 3:[facility] MCHC 32.1 32.0 - 37.0 g/dL LAB HEMETOLOGY METHOD 02/08/2025 3:49 AM EDT [facility] RDW 20.0(H) 11.0 - 15.0 % LAB HEMETOLOGY METHOD 02/08/2025 3:49 AM EDT [facility] Platelets 240 130 - 400 K/mcL LAB HEMETOLOGY METHOD 02/08/2025 3:49 AM EDT [facility] MPV 9.5 7.0 - 11.0 FL LAB HEMETOLOGY METHOD 02/08/2025 3:49 AM EDT [facility] NRBC 0.0 <1.0 % LAB HEMETOLOGY METHOD 02/08/2025 3:49 AM [facility] NRBC Absolute 0.00 <0.10 K/mcL LAB HEMETOLOGY METHOD 02/08/2025 3:49 AM [facility] Neutrophils Relative 27.1 % LAB HEMETOLOGY METHOD 02/08/2025 3:49 AM [facility] Lymphocytes Relative 67.4 % LAB HEMETOLOGY METHOD 02/08/2025 3:49 AM [facility] Monocytes Relative 3.5 % LAB HEMETOLOGY METHOD 02/08/2025 3:49 AM [facility] Eosinophils Relative 1.0 % LAB HEMETOLOGY METHOD 02/08/2025 3:49 AM [facility] Basophils Relative 0.7 % LAB HEMETOLOGY METHOD 02/08/2025 3:49 AM [facility] Immature Granulocytes Relative 0.3 % LAB HEMETOLOGY METHOD 02/08/2025 3:49 AM [facility] Neutrophils Absolute 1.63 1.50 - 7.00 K/mcL LAB HEMETOLOGY METHOD 02/08/2025 3:49 AM [facility] Lymphocytes Absolute 4.06 1.00 - 5.00 K/mcL LAB HEMETOLOGY METHOD 02/08/2025 3:49 AM [facility] Monocytes Absolute 0.21 0.20 - 1.00 K/mcL LAB HEMETOLOGY METHOD 02/08/2025 3:49 AM [facility] Eosinophils Absolute 0.06 0.00 - 0.50 K/mcL LAB HEMETOLOGY METHOD 02/08/2025 3:49 AM [facility] Basophils Absolute 0.04 0.00 - 0.20 K/mcL LAB HEMETOLOGY METHOD 02/08/2025 3:49 AM [facility] Immature Granulocytes Absolute 0.02 0.00 - 0.03 K/mcL LAB HEMETOLOGY METHOD 02/08/2025 3:49 AM EDT [facility] Blood Venous blood specimen / Unknown Venipuncture / Unknown 02/08/2025 2:07 AM EDT 02/08/2025 3:41 AM EDT Lynne Smith MD LAB BLOOD ORDERABLES Final Res ult Performing Organization Address City/[facility]/ZIP Co de Phone Number [facility] [address] [place] [address], [place] [phone] * (ABNORMAL) Ethanol (02/08/2025 2:07 AM EDT) Ethanol Level 282(H) 0 - 10 mg/dL LAB CHEMISTRY METHOD 02/08/2025 4:15 AM EDT [facility] Blood Venous blood specimen / Unknown Venipuncture / Unknown 02/08/2025 2:07 AM EDT 02/08/2025 3:41 AM EDT Lynne Smith MD LAB BLOOD ORDERABLES Final Res ult Performing Organization Address City/[facility]/ZIP Co de Phone Number [facility] [address] [place] [address], [place] [phone] * (ABNORMAL) Acetaminophen level (02/08/2025 2:07 AM EDT) Acetaminophen Level <2.0(L) 10.0 - 30.0 mcg/mL LAB CHEMISTRY METHOD 02/08/2025 4:16 AM EDT [facility] Blood Venous blood specimen / Unknown Venipuncture / Unknown 02/08/2025 2:07 AM EDT 02/08/2025 3:41 AM EDT Lynne Smith MD LAB BLOOD ORDERABLES Final Res ult Performing Organization Address [facility]/ZIP Co de Phone Number [facility] [address] [place] [address], * (ABNORMAL) Salicylate level (02/08/2025 2:07 AM EDT) Salicylate Level <1.7(L) 2.0 - 29.0 mg/dL LAB CHEMISTRY METHOD 02/08/2025 4:15 AM EDT [facility] Blood Venous blood specimen / Unknown Venipuncture / Unknown 02/08/2025 2:07 AM EDT 02/08/2025 3:41 AM EDT Lynne Smith MD LAB BLOOD ORDERABLES Final Res ult Performing Organization Address [facility] Co de Phone Number [facility] [address] [place] [address], * (ABNORMAL) Comprehensive metabolic panel (02/08/2025 2:07 AM EDT) Sodium 142 133 - 145 mmol/L LAB CHEMISTRY METHOD 02/08/2025 4:16 AM [facility] Potassium 3.9 3.5 - 5.5 mmol/L LAB CHEMISTRY METHOD 02/08/2025 4:16 AM [facility] Chloride 104 96 - 110 mmol/L LAB CHEMISTRY METHOD 02/08/2025 4:16 AM T [facility] CO2 32 21 - 32 mmol/L LAB CHEMISTRY METHOD 02/08/2025 4:16 AM [facility] Anion Gap 6 3 - 11 LAB CHEMISTRY METHOD 02/08/2025 4:16 AM [facility] Glucose 106(H) 70 - 100 mg/dL LAB CHEMISTRY METHOD 02/08/2025 4:16 AM [facility] BUN 10 5 - 25 mg/dL LAB CHEMISTRY METHOD 02/08/2025 4:16 AM [facility] Creatinine 0.76 0.50 - 1.10 mg/dL LAB CHEMISTRY METHOD 02/08/2025 4:16 AM [facility] eGFR 91 >=60 mL/min/1. 73m2 LAB CHEMISTRY METHOD 02/08/2025 4:16 AM [facility] Comment:Calculation based on the Chronic Kidney Disease Epidemiology Collaboration (CKD-EPI) equation refit without adjustment for race. BUN/Creatinine Ratio 13.2 LAB CHEMISTRY METHOD 02/08/2025 4:16 AM [facility] Calcium 8.9 8.5 - 10.5 mg/dL LAB CHEMISTRY METHOD 02/08/2025 4:16 AM [facility] AST (SGOT) 16 10 - 42 unit/L LAB CHEMISTRY METHOD 02/08/2025 4:16 AM [facility] ALT (SGPT) 15 10 - 60 unit/L LAB CHEMISTRY METHOD 02/08/2025 4:16 AM [facility] Alkaline Phosphatase 129(H) 42 - 121 unit/L LAB CHEMISTRY METHOD 02/08/2025 4:16 AM [facility] Total Protein 7.3 6.0 - 8.0 g/dL LAB CHEMISTRY METHOD 02/08/2025 4:16 AM [facility] Albumin 3.6 3.2 - 5.0 g/dL LAB CHEMISTRY METHOD 02/08/2025 4:16 AM [facility] Total Bilirubin 0.2 0.0 - 1.4 mg/dL LAB CHEMISTRY METHOD 02/08/2025 4:16 AM [facility] Blood Venous blood specimen / Unknown Venipuncture / Unknown 02/08/2025 2:07 AM EDT 02/08/2025 3:41 AM EDT Lynne Smith MD LAB BLOOD ORDERABLES Final Res ult [facility] [address] [place] [address], * Vascular US Duplex Lower Extremity Venous Left (11/25/2024 11:26 PM EDT) Anatomical Region Laterality Modality Vascular, Abdomen Ultrasound 11/26/2024 4:16 AM EDT Impressions 11/26/2024 4:16 AM EDT No deep vein thrombosis identified in the left lower extremity veins. -------- FINAL REPORT -------- Dictated By: Joseline Harris Dictated Date: 11/26/2024 04:16 ET Assigned Physician: Joseline Harris Reviewed and Electronically Signed By: Joseline Harris Signed Date: 11/26/2024 04:16 ET Workstation ID: [id number] Transcribed By: Self Edit Transcribed Date: 11/26/2024 04:16 ET Narrative 11/26/2024 4:16 AM EDT INDICATION: DVT Hx edema COMPARISON: None TECHNIQUE: Ultrasound of the left lower extremity veins is performed using color-flow Doppler, graded compression with B mode Doppler with spectral analysis FINDINGS: The common femoral, superficial femoral and popliteal veins compress normally throughout their length. Normal response to distal augmentation is seen with calf compression. Included calf vessels are patent on color Doppler. Procedure Note Joseline Harris MD - 11/26/2024 INDICATION: DVT Hx edema COMPARISON: None TECHNIQUE: Ultrasound of the left lower extremity veins is performedusing color- flow Doppler, graded compression with B mode Doppler withspectral analysis FINDINGS: The common femoral, superficial femoral and popliteal veinscompress normally throughout their length. Normal response to distalaugmentation is seen with calf compression. Included calf vessels arepatent on color Doppler. IMPRESSION: No deep vein thrombosis identified in the left lower extremity veins. -------- FINAL REPORT -------- Dictated By: Joseline Harris Dictated Date: 11/26/2024 04:16 ET Assigned Physician: Joseline Harris Reviewed and Electronically Signed By: Joseline Harris Signed Date: 11/26/2024 04:16 ET Workstation ID: [id number] Transcribed By: Self Edit Transcribed Date: 11/26/2024 04:16 ET Gregg [facility] CV VASCULAR PROCEDURES Final Result * XR Tibia Fibula 2 Views Left (11/25/2024 10:03 PM EDT) Anatomical Region Laterality Modality Lower Extremities, Lower Leg Left Rad iographic Imaging 11/26/2024 8:37 AM EDT Impressions 11/26/2024 8:38 AM EDT No acute findings. -------- FINAL REPORT -------- Dictated By: Jesse Juarez Dictated Date: 11/26/2024 08:37 ET Assigned Physician: Jesse Juarez Reviewed and Electronically Signed By: Jesse Juarez Signed Date: 11/26/2024 08:38 ET Workstation ID: [id number] Transcribed By: Self Edit Transcribed Date: 11/26/2024 08:37 ET Narrative 11/26/2024 8:38 AM EDT PROCEDURE: Radiographs of the left tibia and fibula. HISTORY: pain. COMPARISON: None. FINDINGS: Side plate and fixation screw ORIF hardware along the distal fibula. Alignment is normal. Hardware is intact. No acute fracture. No bony lesion. Procedure Note Jesse Juarez MD - 11/26/2024 PROCEDURE: Radiographs of the left tibia and fibula. HISTORY: pain. COMPARISON: None. FINDINGS: Side plate and fixation screw ORIF hardware along the distal fibula.Alignment is normal. Hardware is intact. No acute fracture. No bonylesion. IMPRESSION: No acute findings. -------- FINAL REPORT -------- Dictated By: Jesse Juarez Dictated Date: 11/26/2024 08:37 ET Assigned Physician: Jesse Juarez Reviewed and Electronically Signed By: Jesse Juarez Signed Date: 11/26/2024 08:38 ET Workstation ID: [id number] Transcribed By: Self Edit Transcribed Date: 11/26/2024 08:37 ET Gregg OVALLE IMG XR PROCEDURES Final Resul t * XR Femur 2+ Views Left (11/25/2024 10:03 PM EDT) Anatomical Region Laterality Modality Lower Extremities, Femur Left Radiogr aphic Imaging 11/26/2024 8:37 AM EDT Impressions 11/26/2024 8:37 AM EDT No acute findings. -------- FINAL REPORT -------- Dictated By: Jesse Juarez Dictated Date: 11/26/2024 08:37 ET Assigned Physician: Jesse Juarez Reviewed and Electronically Signed By: Jesse Juarez Signed Date: 11/26/2024 08:37 ET Workstation ID: [id number] Transcribed By: Self Edit Transcribed Date: 11/26/2024 08:37 ET Narrative 11/26/2024 8:37 AM EDT PROCEDURE: Multiple radiographs of the left femur. HISTORY: pain. COMPARISON: None. FINDINGS: Mild degenerative changes of the hip and pubic symphysis. No suspicious bony lesion. No fracture. Atherosclerotic calcifications. Pelvic phleboliths. Procedure Note Jesse Juarez MD - 11/26/2024 PROCEDURE: Multiple radiographs of the left femur. HISTORY: pain. COMPARISON: None. FINDINGS: Mild degenerative changes of the hip and pubic symphysis. No suspiciousbony lesion. No fracture. Atherosclerotic calcifications. Pelvicphleboliths. IMPRESSION: No acute findings. -------- FINAL REPORT -------- Dictated By: Jesse Juarez Dictated Date: 11/26/2024 08:37 ET Assigned Physician: Jesse Juarez Reviewed and Electronically Signed By: Jesse Juarez Signed Date: 11/26/2024 08:37 ET Workstation ID: [id number] Transcribed By: Self Edit Transcribed Date: 11/26/2024 08:37 ET Escobedo R Daviau PA IMG XR PROCEDURES Final Resul t * (ABNORMAL) Lipid panel with reflex to direct LDL (08/23/2024 11:29 AM EDT) Cholesterol 275(H) 0 - 200 mg/dL LAB CHEMISTRY METHOD 08/23/2024 3:24 PM EDT [facility] Triglycerides 327(H) 0 - 150 mg/dL LAB CHEMISTRY METHOD 08/23/2024 3:24 PM EDT [facility] HDL 84 >=40 mg/dL LAB CHEMISTRY METHOD 08/23/2024 3:24 PM EDT [facility] LDL Calculated 126(H) 0 - 100 mg/dL LAB CHEMISTRY METHOD 08/23/2024 3:24 PM EDT [facility] VLDL Cholesterol Silvano 65.4 mg/dL LAB CHEMISTRY METHOD 08/23/2024 3:24 PM EDT [facility] Non HDL Chol. (LDL+VLDL) 191(H) <145 mg/dL LAB CHEMISTRY METHOD 08/23/2024 3:24 PM EDT [facility] Chol/HDL Ratio 3.3 0.0 - 4.4 LAB CHEMISTRY METHOD 08/23/2024 3:24 PM EDT [facility] Blood Venous blood specimen / Unknown Venipuncture / Unknown 08/23/2024 11:29 AM EDT 08/23/2024 11:29 AM EDT us Bill Syed MD LAB BLOOD ORDERABLES Final Res ult [facility] [address] [place] [address], * SCREENING MAMMOGRAPHY BI 2-VIEW BREAST INC CAD (10/11/2022 3:32 PM EDT) Anatomical Region Laterality Modality Radiographic Carol ging 09/16/2022 1:28 PM EDT Narrative 10/12/2022 4:48 PM EDT This is a summary report. The complete report is available in the patient's medical record. If you cannot access the medical record, please contact the sending organization for a detailed fax or copy. Full field digital screening tomosynthesis mammography, reviewed with CAD and compared to previous. The breasts are composed of fatty and fibroglandular tissue. No suspicious mass, architectural distortion or suspicious calcifications are identified. IMPRESSION: : No mammographic evidence of malignancy. BIRADS 1-Negative; N. 5 year breast cancer risk assessment 0.6 % Lifetime breast cancer risk assessment 4.1 % Breast cancer risk category Low (<15%) Procedure Note Reina Gary MD - 06/27/2023 This is a summary report. The complete report is available in thepatient's medical record. If you cannot access the medical record, pleasecontact the sending organization for a detailed fax or copy. Full field digital screening tomosynthesis mammography, reviewed with CADand compared to previous. The breasts are composed of fatty andfibroglandular tissue. No suspicious mass, architectural distortion orsuspicious calcifications are identified. IMPRESSION: : No mammographic evidence of malignancy. BIRADS 1-Negative; N. 5 year breast cancer risk assessment 0.6 % Lifetime breast cancer risk assessment 4.1 % Breast cancer risk category Low (<15%) Jasmin Momin SENIOR JAVASCRIPT DEVELOPER IMG XR PROCEDURES Final Result * Hepatitis C Screening (07/23/2020) Hepatitis C Screening negative Historical Provider HEALTH MAINTENANCE Final Result from Last 3 Months or Most Recently Relevant to Health Maintenance Insurance MEDICA[place] - [place] MEDICARE Care Teams Restorative Art Embalmer Relationship Specialty Start Date End Date Bill Syed MD [address] [place] [id number] PCP - General Internal Medicine 07/10/24
[2025-02-11 20:00] VITALS: BP 131/73; PULSE 78; RESP 18; TEMP 36.3; O2SAT 97
[2025-02-11 20:16] VITALS: BMI 23.8
--- NOTE | 2025-02-11 20:54 | PC.ADMIT ---
Gifty is a 49 year old female who was admitted to M5 from [facility] at 1703 for worsening depression and anxiety. She reports she has been experiencing increased stress since the ending of a 25 year relationship and becoming homeless 1 year ago. She called the [facility] crisis line and was advised to go to the ED for evaluation. She reports she was feeling down, hopeless, and overwhelmed but was never reporting feeling suicidal. She reports staying at a couple respites in the past and is hoping to do the same now. She reports being homeless and suffers from depression and anxiety and poly neuropathy. She recently had a left wrist fracture and? currently has a splint in place and is wrapped in bull wrap. She is supposed to be having a hard cast but she missed her appointment due to being in hospital. She?s been placed on 5 min checks for safety. She denies SI/HI/AVH and rates depression and anxiety as moderate. She denies illicit drug use, reports occasional alcohol use, doesn?t smoke, declines Flu vaccine and motor driver visit.She signed a CV then a 3 day notice, oriented to unit, completed dinner menu, and remaining admission paperwork endorsed to night RN.?
--- NOTE | 2025-02-12 00:48 | P.CONHOSP_ITS ---
History of Present Illness Data of Consult Service Date: 02/12/25 Requesting physician: Thomas Condon Primary Care Provider: Unknown Physician HPI Reason for consult: medical H+P Pt is a 59 yo f with a pmhx signficant for hypothyroidism and polyneuropathy, transferred from [facility] for depression and anxiety, admitted to adult psych. hospitalist consult placed for medical H+P. pt reports recent L wrist x s/p surgery 1 month ago at [facility]. she went for a f/u appt last week and her cast was removed and she was supposed to get a brace but due to insurance issues she did not get this and was placed in a soft splint. pt states she is supposed to f/u with them later this week to get the brace. she is still having some pain in the wrist but improving. she has numbness and tingling at baseline due to her polyneuropathy but states that she is at baseline. she has not other concerns currently. Review of Systems Constitutional: Constitutional: Denies body ache(s), Denies chills, Denies fatigue, Denies fever(s) and Denies headache(s) Eyes: Eyes: Denies change in vision ENT: Denies headache(s), Denies nasal congestion and Denies sore throat Cardiovascular: Cardiovascular: Denies chest pain, Denies rapid heart rate, Denies leg edema, Denies lightheadedness and Denies dyspnea Respiratory: Respiratory: Denies chest congestion, Denies cough, Denies dyspnea and Denies wheezing Gastrointestinal: Gastrointestinal: Denies abdominal pain, Denies nausea and Denies vomiting Genitourinary: Genitourinary: Denies difficulty voiding, Denies dysuria and Denies urinary urgency Musculoskeletal: Musculoskeletal: Denies back pain and Denies myalgias Integumentary/Breasts: Skin/Breast: Denies rash Neurologic: Denies confusion and Denies headache(s) Psychiatric: Psychiatric: Denies confusion Endocrine: Endocrine: Denies fatigue Hematologic/Lymphatic: Hematologic/Lymphatic: Denies easy bleeding and Denies easy bruising Allergic/Immunologic: Allergic/Immunologic: Denies wheezing [facility] Medical History (Updated 02/12/25 @ 00:55 by Nadege Burton PA-C) Hypothyroid Polyneuropathy Functional capacity: independent ambulation Social History Household Members: None Housing: Homeless Do you presently have visiting nurse or other home services: No Patient Tobacco Use Status: Never used Tobacco Smoked in Last 30 Days: No e-Cigarette/Vaping Use: Never Used Patient Interested in Nicotine Replacement: No Patient Given Instructions on How to Stop Smoking: No Second Hand Smoke Exposure: No Currently Displaying Signs/Symptoms of Drug Intoxication Withdrawal: No Spiritual Healthcare Practices: NA Anglican Healthcare Practices: NA Cultural Healthcare Practices: NA Advance Directives: Yes Advance Directives Information Provided: Yes Advance Directives on File: No Do you have thoughts of harming others: None Do you have a plan to hurt others: No Plan Recently lost weight without trying: Unsure How much weight loss: Not applicable Eating poorly because of decreased appetite: No Nutrition screen score: 2 Nutrition Risks: No Nutritional Risk Patient : No : No Poor oral hygiene: No Narrative: no smoking, etoh or drug use Meds Allergies Allergy/AdvReac Type Severity Reaction Status Date / Time latex Allergy Severe Rash Verified 02/11/25 17:27 diphenhydramine (From Allergy Intermediate Palpitation Verified 02/11/25 17:27 Benadryl Allergy) s Active Medications: Current Medications Acetaminophen (Acetaminophen 325 Mg Tablet) 650 mg PO Q6H PRN PRN Reason: Headache/Pain, Scale 1-10 Al Hydroxide/Mg Hydroxide (Magnesium Hydrox/Alum Hydrox 30 Ml Oral.Susp) 30 ml PO Q6H PRN PRN Reason: Heartburn/Nausea Gabapentin (Gabapentin 400 Mg Capsule) 800 mg PO BEDTIME [facility] Last Admin: 02/11/25 22:10 Dose: 800 mg Hydroxyzine HCl (Hydroxyzine Hcl 25 Mg Tablet) 25 mg PO Q6H PRN PRN Reason: mild anxiety Levothyroxine Sodium (Levothyroxine Sodium 75 Mcg Tablet) 75 mcg PO DAILY@0600 [facility] Magnesium Hydroxide (Milk Of Magnesia 30 Ml Oral.Susp) 30 ml PO DAILY PRN PRN Reason: Constipation Melatonin (Melatonin 3 Mg Tablet) 6 mg PO BEDTIME [facility] Last Admin: 02/11/25 22:06 Dose: 3 mg Mirtazapine (Mirtazapine 15 Mg Tablet) 15 mg PO BEDTIME [facility] Last Admin: 02/11/25 22:07 Dose: 15 mg Nicotine (Nicotine 21 Mg Patch.Td24) 21 mg TRANSDERMA DAILY PRN PRN Reason: nicotine craving Nicotine Polacrilex (Nicotine Polacrilex 2 Mg Gum) 2 mg BUCCAL Q2H PRN PRN Reason: Nicotine Cravings Olanzapine (Olanzapine 5 Mg Tablet) 5 mg PO BID PRN PRN Reason: agitation Trazodone HCl (Trazodone Hcl 50 Mg Tablet) 50 mg PO BEDTIME MRX1 PRN PRN Reason: Insomnia Home Medications ?Medication ?Instructions ?Recorded ?Confirmed ?Last Taken ?Type gabapentin 800 mg tablet 800 mg PO DAILY 02/11/25 Unknown History levothyroxine 75 mcg tablet 75 mcg PO DAILY 02/11/25 0 02/11/25 Unknown History melatonin 3 mg tablet 3 - 9 mg PO BEDTIME PRN Inso mnia 02/11/25 02/11/25 Unknown History Physical Exam Vital Signs and Narrative: Vital Signs: Last Vital Signs Temp 97.3 F 02/11/25 20:00 Pulse 78 02/11/25 20:00 Resp 18 02/11/25 20:00 BP 131/73 02/11/25 20:00 Pulse Ox 97 02/11/25 20:00 O2 Del Method Room Air 02/11/25 20:00 BMI result Body Mass Index 23.8 General: AOx3, no acute distress Resp: CTA bilaterally CVS: S1, S2, RRR GI: +BS, NT, no distention Skin: Warm, dry Neuro: Cranial nerves II-XII grossly intact bilaterally. Motor grossly intact bilaterally. strength lower extremities equal bilaterally. LUE deferred due to splint. RUE normal. Extremities: No pitting edema Psych: Appropriate affect Const: General: No confusion Orientation/consciousness: No confusion Neuro: General: No confusion Assessment and Plan (1) Medical clearance for psychiatric admission: Status: Acute (2) Left wrist fracture: Status: Acute Plan Pt is a 59 yo f with a pmhx signficant for hypothyroidism and polyneuropathy, transferred from [facility] for depression and anxiety, admitted to adult psych. mood/anxiety/depression - plan per psych L wrist fx - offered xray and ortho consult for possible brace if needed, pt declined, wants to f/u with [facility] hypothyroid - levothyroxine polyneuropathy - gabapentin Thank you for allowing me to participate in the pt's care. Signing off. Please contact the medical team if any questions or concerns.
[2025-02-12 08:14] LABS: Hemoglobin A1C 149.8427 umol/L; Total Hemoglobin (HGBA1C) 3601.9147 umol/L
[2025-02-12 08:28] LABS: Alanine Aminotransferase 11 U/L (0-31); Albumin Level 3.7 g/dL (3.5-5.0); Alkaline Phosphatase 115 U/L (39-117); Anion Gap 11 (12-20); Aspartate Amino Transferase 34 U/L (5-31); Blood Urea Nitrogen 13 mg/dL (9-16); Calcium 9.5 mg/dL (8.4-10.2); Carbon Dioxide 29 mmol/L (22-29); Chloride 105 mmol/L (96-108); Cholesterol 223 mg/dL (<200); Creatinine Clr Calc Pharmacy 61.4; Estimated Glomerular Filt Rate > 60; HDL Cholesterol 61 mg/dL (>40); Potassium 4.2 mmol/L (3.3-5.1); Sodium 141 mmol/L (135-145); Total Protein 6.8 g/dL (6.5-8.0); Triglycerides 350 mg/dL (<150)
[2025-02-12 08:44] LABS: Free T4 (Free Thyroxine) 0.93 ng/dL (0.71-1.85); Thyroid Stimulating Hormone 20.78 uIU/mL (0.32-4.0)
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
[2025-02-12 09:14] VITALS: BP 104/57; PULSE 67; TEMP 36.1; O2SAT 98
--- NOTE | 2025-02-12 09:49 | MHC.CLN ---
CONSULT ROUTINE NUTRITION CONSULT. NO NOTED NUTRITION CONCERNS. PLEASE CONSULT RD IF NUTRITIONAL NEEDS OR POOR PO.
[2025-02-12 19:45] VITALS: BP 147/86; PULSE 81; TEMP 36.4; O2SAT 97
--- NOTE | 2025-02-13 09:49 | P.PNPSI_ITS ---
Subjective Subjective Date of Service: 02/13/25 Reason For Visit: Worsening depression and anxiety Subjective Notes: 3 Day Interim History: Patient notes that she feels ?good. ? Her sleep is decent. She denies anxiety or depression. She denies SI/HI/AH/VH. She is ready for discharge on 02/13/2025. Medication Compliance: Yes Side effects from medications: No Attending Groups: Intermittent Review of Systems Acute medical concerns: No Review of Systems Review of Systems Musculoskeletal: Mild pain to left wrist Mental Status Exam Mental Status Exam Narrative: Appearance: Casually dressed, adequate hygiene and grooming Behavior: Calm and cooperative throughout the interview. Eye contact is appropriate, and there are no signs of psychomotor agitation or retardation Speech: Normal volume and prosody Thought process: Logical and goal-directed Thought content: Future oriented no self-harming thoughts Mood: Euthymic Affect: Full, mood-congruent SI:denies HI:denies VH/AH:none Delusions: None Insight/judgment: Fair insight and judgment Memory/cog: Alert, oriented x 4. grossly intact to conversational testing Diagnostics Vital Signs (24Hr): Vital Signs - 24 hr 02/12/25 19:45 Temperature 97.6 F Pulse Rate 81 Blood Pressure 147/86 H Pulse Oximetry 97 Oxygen Delivery Method Room Air BMI result Body Mass Index 23.8 Labs 02/12/25 07:46 Labs: Laboratory Results - last 48 hr 02/12/25 07:46 Sodium 141 Potassium 4.2 Chloride 105 Carbon Dioxide 29 Anion Gap 11 L BUN 13 Creatinine 0.79 Estim Creat Clear Calc 61.4 Estimated GFR > 60 Random Glucose 87 Estimat Average Glucose 126 Hemoglobin A1c % 6.0 Calcium 9.5 Total Bilirubin 0.3 AST 34 H ALT 11 Alkaline Phosphatase 115 Total Protein 6.8 Albumin 3.7 Triglycerides 350 H Cholesterol 223 H LDL Cholesterol, Calc 92 HDL Cholesterol 61 TSH 20.78 H Free T4 0.93 Medications Medications Current Medications Acetaminophen (Acetaminophen 325 Mg Tablet) 650 mg PO Q6H PRN PRN Reason: Headache/Pain, Scale 1-10 Last Admin: 02/12/25 21:56 Dose: 650 mg Al Hydroxide/Mg Hydroxide (Magnesium Hydrox/Alum Hydrox 30 Ml Oral.Susp) 30 ml PO Q6H PRN PRN Reason: Heartburn/Nausea Gabapentin (Gabapentin 400 Mg Capsule) 800 mg PO BEDTIME MILA Last Admin: 02/12/25 22:01 Dose: 800 mg Hydroxyzine HCl (Hydroxyzine Hcl 25 Mg Tablet) 25 mg PO Q6H PRN PRN Reason: mild anxiety Last Admin: 02/13/25 07:23 Dose: 25 mg Levothyroxine Sodium (Levothyroxine Sodium 100 Mcg Tablet) 100 mcg PO DAILY@0600 [facility] Last Admin: 02/13/25 07:21 Dose: 100 mcg Magnesium Hydroxide (Milk Of Magnesia 30 Ml Oral.Susp) 30 ml PO DAILY PRN PRN Reason: Constipation Melatonin (Melatonin 3 Mg Tablet) 6 mg PO BEDTIME [facility] Last Admin: 02/12/25 21:57 Dose: 6 mg Mirtazapine (Mirtazapine 15 Mg Tablet) 15 mg PO BEDTIME [facility] Last Admin: 02/12/25 21:57 Dose: 15 mg Nicotine (Nicotine 21 Mg Patch.Td24) 21 mg TRANSDERMA DAILY PRN PRN Reason: nicotine craving Nicotine Polacrilex (Nicotine Polacrilex 2 Mg Gum) 2 mg BUCCAL Q2H PRN PRN Reason: Nicotine Cravings Olanzapine (Olanzapine 5 Mg Tablet) 5 mg PO BID PRN PRN Reason: agitation Trazodone HCl (Trazodone Hcl 50 Mg Tablet) 50 mg PO BEDTIME MRX1 PRN PRN Reason: Insomnia Allergies Allergies Allergy/AdvReac Type Severity Reaction Status Date / Time latex Allergy Severe Rash Verified 02/11/25 17:27 diphenhydramine (From Allergy Intermediate Palpitation Verified 02/11/25 17:27 Benadryl Allergy) s Assessment & Plan Assessment & Plan (1) Anxiety: Status: Acute Code(s): F41.9 - Anxiety disorder, unspecified (2) Depression: Status: Acute Code(s): F32.A - Depression, unspecified (3) Homelessness: Status: Acute Code(s): Z59.00 - Homelessness unspecified (4) Hypothyroid: Status: Acute Code(s): E03.9 - Hypothyroidism, unspecified (5) Left wrist fracture: Status: Acute Code(s): S62.102A - Fracture of unspecified carpal bone, left wrist, initial encounter for closed fracture Assessment and Plan: 59-year-old female with history of anxiety, depression, and neuropathy to her hands and bilateral lower extremity, was admitted yesterday to from [facility] ED for worsening depression and anxiety in the context of homelessness. On interview with this provider and her rn social services, patient notes that on Monday02/07/2025, she attempted to book an Airbnb for housing but failed; she did not receive confirmation for the booking. Therefore, she became very anxious and depressed. She called [facility] crisis line and was advised to go to the ED. On the day, she went to [facility] ED as advised. She has been homeless since she broke up with her friend/partner, not spouse, who is the father of 2 of her 4 children in October 2023 and was immediately asked to leave the house; she has been homeless since, and has been living with her daughter, family members, Airbnb, and respite. She reports baseline anxiety and depressive symptoms which are generally controlled. However, her symptoms intensified when she was not able to secure an Airbnb on Monday and realized she would have no place to sleep. She also reports chronic sleep disturbance with difficulty falling and staying asleep and poor appetite. She was prescribed mirtazapine 15 mg at bedtime at [facility] ED and her sleep and appetite has improved since starting the medication. She was on sertraline which she stop taking 2 years ago because she does not believe in taking medications. She occasionally takes hydroxyzine 25 mg for anxiety. She denies SI/HI/AH/VH. She drinks 2 seltzer alcoholic beverage 1-2 times weekly. She denies illicit drugs. She does not want changes to her current treatment regimen. Her goal is to be referred to a therapist and psychiatrist. She is on a wait list for a therapist at [facility]. She signed a 3 day notice that will in 2 days. Patient reports recent L wrist x s/p surgery 1 month ago at [facility]. She went for a f/u appt last week and her cast was removed and she was supposed to get a brace but due to insurance issues she did not get this and was placed in a soft splint. Pt states she is supposed to f/u with them later this week to get the brace. She denies pain at this time. Per hospitalist notes, patient was offered xray and ortho consult for possible brace if needed, pt declined, wants to f/u with [facility]. 02/13: Continue current treatment regimen. Discharge tomorrow 02/14/2025. Formulation/Clinical reasoning: Anxiety and depression: Seems situational; symptoms exacerbated due to not having a place to live last Monday. No SI/HI/AH/VH. She has been taking Remeron as prescribed with good response. She does not wish to change current treatment regimen for her mental health. TSH is elevated, 20.78, levothyroxine increased to 100 mcg daily; advised to take as prescribed. Continue current treatment regimen. 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 Verbalized understanding and agreed with the plan. Plan: Admit to M5. CV 5 minutes check. Diagnostics as needed. Collateral contact. Continue remainder of regime. Encouraged full milieu. Discharge planning. Meds: Mirtazapine 15 mg at bedtime Patient educated on: therapeutic strategies Reason for continued inpatient stay Substantial Risk for: stable for discharge Time Spent With Patient Time: Total time managing care of this patient today ____ minutes.
[2025-02-13 20:21] VITALS: BP 137/89; PULSE 80; RESP 16; TEMP 36.3; O2SAT 98
--- NOTE | 2025-02-14 06:04 | PM.PSYDC ---
DS: Providers Provider Date of Service: 02/14/25 Date of admission: 02/11/25 16:52 Date of discharge: 02/14/25 Primary care physician: Unknown Physician Admitting clinician: Hellen Raygoza Attending physician on admission: Leodan Cornejo Consults: 02/11/25 17:27 Consult to Hospitalist Routine Comment: [place] [facility] [place] Reason For Exam: New external admit H+P Attending physician on discharge: Leodan Cornejo Discharging clinician: Hellen Raygoza DS: Diagnosis Discharge Diagnosis (1) Anxiety: Status: Acute (2) Depression: Status: Acute (3) Homelessness: Status: Acute (4) Hypothyroid: Status: Acute (5) Left wrist fracture: Status: Acute DS: Medications Discharge Medications Home Medications: Previous Rx's ?Medication ?Instructions ?Recorded gabapentin 800 mg tablet 800 mg PO BEDTIME #30 tabs 02/13/25 hydroxyzine HCl 25 mg tablet 25 mg PO Q6H PRN mild anxiety #30 02/13/25 tabs levothyroxine 100 mcg tablet 100 mcg PO DAILY #30 tabs 02/13/25 (Synthroid) melatonin 3 mg tablet 6 mg (2 x 3 mg) PO BEDTIME PRN 02/13/25 Insomnia #60 tabs mirtazapine 15 mg tablet 15 mg PO BEDTIME #30 tabs 02/13/25 Mental Status Exam Mental Status Exam Narrative: Appearance: Casually dressed, adequate hygiene and grooming Behavior: Calm and cooperative throughout the interview. Eye contact is appropriate, and there are no signs of psychomotor agitation or retardation Speech: Normal volume and prosody Thought process: Logical and goal-directed Thought content: Future oriented no self-harming thoughts Mood: Euthymic Affect: Full, mood-congruent SI:denies HI:denies VH/AH:none Delusions: None Insight/judgment: Fair insight and judgment Memory/cog: Alert, oriented x 4. grossly intact to conversational testing Data Data Completed and Pending Completed studies during hospitalization [Text1]: 02/12/25 02/12/25 07:46 11:18 Sodium 141 Potassium 4.2 Chloride 105 Carbon Dioxide 29 Anion Gap 11 L BUN 13 Creatinine 0.79 Estim Creat Clear Calc 61.4 Estimated GFR > 60 Random Glucose 87 Estimat Average Glucose 126 Hemoglobin A1c % 6.0 Calcium 9.5 Total Bilirubin 0.3 AST 34 H ALT 11 Alkaline Phosphatase 115 Total Protein 6.8 Albumin 3.7 Triglycerides 350 H Cholesterol 223 H LDL Cholesterol, Calc 92 HDL Cholesterol 61 25-OH Vitamin D Total Pending 25-Hydroxy Vitamin D2 Pending 25-Hydroxy Vitamin D3 Pending TSH 20.78 H Free T4 0.93 DS: Summary Hospital Course Hospital Course: HPI: 59-year-old female with history of anxiety, depression, and neuropathy to her hands and bilateral lower extremity, was admitted yesterday to from [facility] ED for worsening depression and anxiety in the context of homelessness. On interview with this provider and her social services manager, patient notes that on Monday02/07/2025, she attempted to book an Airbnb for housing but failed; she did not receive confirmation for the booking. Therefore, she became very anxious and depressed. She called [facility] crisis line and was advised to go to the ED. On the day, she went to [facility] ED as advised. She has been homeless since she broke up with her friend/partner, not spouse, who is the father of 2 of her 4 children in October 2023 and was immediately asked to leave the house; she has been homeless since, and has been living with her daughter, family members, Airbnb, and respite. She reports baseline anxiety and depressive symptoms which are generally controlled. However, her symptoms intensified when she was not able to secure an Airbnb on Monday and realized she would have no place to sleep. She also reports chronic sleep disturbance with difficulty falling and staying asleep and poor appetite. She was prescribed mirtazapine 15 mg at bedtime at [facility] ED and her sleep and appetite has improved since starting the medication. She was on sertraline which she stop taking 2 years ago because she does not believe in taking medications. She occasionally takes hydroxyzine 25 mg for anxiety. She denies SI/HI/AH/VH. She drinks 2 seltzer alcoholic beverage 1-2 times weekly. She denies illicit drugs. She does not want changes to her current treatment regimen. Her goal is to be referred to a therapist and psychiatrist. She is on a wait list for a therapist at [facility]. She signed a 3 day notice that will in 2 days. Patient reports recent L wrist x s/p surgery 1 month ago at [facility]. She went for a f/u appt last week and her cast was removed and she was supposed to get a brace but due to insurance issues she did not get this and was placed in a soft splint. Pt states she is supposed to f/u with them later this week to get the brace. She denies pain at this time. Per hospitalist notes, patient was offered xray and ortho consult for possible brace if needed, pt declined, wants to f/u with [facility]. 02/13: Continue current treatment regimen. Discharge tomorrow 02/14/2025. Formulation/Clinical reasoning: Anxiety and depression: Seems situational; symptoms exacerbated due to not having a place to live last Monday. No SI/HI/AH/VH. She has been taking Remeron as prescribed with good response. She does not wish to change current treatment regimen for her mental health. TSH is elevated, 20.78, levothyroxine increased to 100 mcg daily; advised to take as prescribed. Continue current treatment regimen. 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 Verbalized understanding and agreed with the plan. Status at Discharge Functional status at discharge: independent ambulation Overall status at discharge: patient is back to baseline Time Spent with Patient Time attestation: Total time managing care of this patient today ____ minutes. Discharge Plan Discharge Anticipated Discharge Date/Time: 02/14/25 11:50 Patient Disposition: Home, Self-Care Discharge Diagnosis: Anxiety, depression, homelessness, hypothyroidism, left wrist fracture Referrals: [facility] [Other] - 02/15/25 11:00 am Referral Note: Hospital discharge appointment for diagnostic evaluation for therapy and psychiatric medication management services Appointment in person at [facility] clinic on [facility] Physician,Unknown J [Primary Care Provider, Medical] - 1 Week Discharge Medications: New levothyroxine [Synthroid] 100 mcg Tablet 100 mcg PO DAILY Qty: 30 0RF hydroxyzine HCl 25 mg Tablet 25 mg PO Q6H PRN (Reason: mild anxiety) Qty: 30 0RF mirtazapine 15 mg Tablet 15 mg PO BEDTIME Qty: 30 0RF Changed gabapentin 800 mg tablet 800 mg PO BEDTIME Qty: 30 0RF melatonin 3 mg tablet 6 mg PO BEDTIME PRN (Reason: Insomnia) Qty: 60 0RF Discontinued levothyroxine 75 mcg tablet 75 mcg PO DAILY Discharge Orders: Discharge Order (Routine); Ordered 02/14/25 Ordered By: Hellen Raygoza Diet: Advance to usual diet Activity on Discharge: As tolerated Stand Alone Forms: Patient Portal Discharge page, Community Support Print Language: Sinhala Care Plan Goals: Maintain mood and safe behaviors Take medications as prescribed Practice coping skills Continue with outpatient providers and reach out to them as needed Health Concerns: Mood stability and behaviors Plan of Treatment: Follow up with your PCP, psychiatric provider and other outpatient providers regarding above concerns Take medications as prescribed Assessment: Risk assessment at time of discharge:? Patient was interviewed prior to discharge and found to be fully oriented and without any SI or HI. Patient has improved insight and judgment and wants to continue treatment. Patient is not in imminent risk of harm to self or others and has a safety plan that includes presenting to the closest ER or calling 911 if feeling unsafe.? Patient has been observed closely by nursing and unit staff throughout admission; patient has not engaged in any behaviors that suggest dangerousness to self or others and has demonstrated appropriate behaviors and impulse control
[2025-02-14 08:00] VITALS: BP 120/70; PULSE 92; RESP 15; TEMP 36.5; O2SAT 96
== END 2025-02-14 10:55 | disposition home or self-care (01) | DRG 881 ==
PROVIDERS: Nurse Practitioner Family; Nurse Practitioner Psychiatric/Mental Health; Admitting Provider Psychiatry & Neurology Psychiatry; Visit Provider Psychiatry & Neurology Psychiatry
DX: F32.A Depression, unspecified (principal); Z59.02 Unsheltered homelessness; E03.9 Hypothyroidism, unspecified; G62.9 Polyneuropathy, unspecified; S62.102A Fracture of unspecified carpal bone, left wrist, initial encounter for closed fracture; X58.XXXA Exposure to other specified factors, initial encounter; F41.9 Anxiety disorder, unspecified; Z79.890 Hormone replacement therapy; Z79.899 Other long term (current) drug therapy
CPT/HCPCS: 36415; 80053; 80061; 82306; 83036; 84439; 84443

== ENCOUNTER → 2025-02-11 16:52 | Outpatient (BNV) | payer MEDICARE, MEDICAID, SELFPAY | PROVIDERS: Admitting Provider Psychiatry & Neurology Psychiatry; Visit Provider Nurse Practitioner Family | DX: F41.9 Anxiety disorder, unspecified (principal); F32.A Depression, unspecified; Z59.00 Homelessness unspecified; E03.9 Hypothyroidism, unspecified; S62.102A Fracture of unspecified carpal bone, left wrist, initial encounter for closed fracture | CPT/HCPCS: 90792; 99231; 99238 ==

== ENCOUNTER → 2025-02-11 16:52 | Outpatient (BNV) | payer MEDICARE, MEDICAID, SELFPAY | PROVIDERS: Admitting Provider Psychiatry & Neurology Psychiatry; Visit Provider Physician Assistant | DX: Z00.8 Encounter for other general examination (principal); S62.102A Fracture of unspecified carpal bone, left wrist, initial encounter for closed fracture | CPT/HCPCS: 99222 ==